=== PATIENT | male | born 1955 | race Caucasian/White ===

== ENCOUNTER 2022-06-20 09:59 | Emergency (ER) | payer OTHER ==
[~2022-06-20] VITALS: Ht 180.3 cm; Wt 83.9 kg
[2022-06-20 10:37] LABS: BASOPHILS ABSOLUTE AUTO 0.04 K/mm3 (0.00-0.23); BASOPHILS PERCENT AUTO 1 % (0-2); EOSINOPHILS ABSOLUTE AUTO 0.35 K/mm3 (0.00-0.68); EOSINOPHILS PERCENT AUTO 6 % (0-6); Hematocrit 43.3 % (37.0-53.0); Hemoglobin 15.3 g/dL (13.5-17.5); IMMATURE GRAN ABSOLUTE AUTO 0.01 K/mm3 (0.00-0.10); IMMATURE GRAN PERCENT AUTO 0 % (0-1); LYMPHOCYTES ABSOLUTE AUTO 0.89 K/mm3 (0.84-5.20); LYMPHOCYTES PERCENT AUTO 16 % (21-46); MONOCYTES ABSOLUTE AUTO 0.55 K/mm3 (0.16-1.47); MONOCYTES PERCENT AUTO 10 % (4-13); Mean Corpuscular HGB Conc 35.3 g/dL (31.5-36.5); Mean Corpuscular Volume 88 fL (80-100); Mean Platelet Volume 10.8 fL (9.1-12.4); NEUTROPHILS ABSOLUTE AUTO 3.73 K/mm3 (1.96-9.15); NEUTROPHILS PERCENT AUTO 67 % (41-73); Platelet Count 192 K/mm3 (150-400); RDW Coefficient Variation 12.3 % (11.7-14.2); Red Blood Cell Count 4.94 M/mm3 (4.30-5.90); White Blood Cell Count 5.57 K/mm3 (4.00-11.30)
[2022-06-20 11:02] LABS: Albumin, Blood 3.7 g/dL (3.4-5.0); Albumin/Globulin Ratio 1.2 (0.8-1.8); Bilirubin, Total 0.3 mg/dL (0.1-1.0); Bun/Creatinine Ratio 18.2 (12.0-20.0); Calcium, Blood 8.9 mg/dL (8.5-10.1); Creatinine, Blood 0.99 mg/dL (0.60-1.20); Total Protein, Blood 6.7 g/dL (6.4-8.2)
[2022-06-20 11:36] LABS: Source, Urine Clean Catch
[2022-06-20 11:42] LABS: Appearance, Urine Clear (Clear); Bilirubin, Urine Neg (Neg); Blood, Urine Neg (Neg); Color, Urine Yellow (P-Yellow); Glucose Qualitative, Urine Neg (Neg); Ketones, Urine Neg (Neg); Leukocyte Esterase, Urine Neg (Neg); Nitrite, Urine Neg (Neg); Protein, Urine Neg (Neg); Specific Gravity, Urine 1.005 (1.003-1.022); Urobilinogen, Urine NORM (Normal)
== END 2022-06-20 12:35 | disposition home or self-care (01) ==
LOC: ER 09:59
PROVIDERS: Emergency Medicine
DX: R10.30 Lower abdominal pain, unspecified (principal)
CPT/HCPCS: 36415; 74177; 80053; 81003; 83605; 83690; 85025; 96374-59; 99284-25; J2270; Q9967

== ENCOUNTER 2022-12-12 00:48 | Inpatient (IN) | payer OTHER, MEDICARE ==
[~2022-12-12] VITALS: Ht 180.3 cm; Wt 8.0 kg
[2022-12-12 01:45] LABS: Source, Urine Clean Catch
[2022-12-12 02:11] LABS: Magnesium, Blood 2.2 mg/dL (1.6-2.4)
[2022-12-12 02:13] LABS: BASOPHILS ABSOLUTE AUTO 0.04 K/mm3 (0.00-0.23); BASOPHILS PERCENT AUTO 1 % (0-2); EOSINOPHILS ABSOLUTE AUTO 0.37 K/mm3 (0.00-0.68); EOSINOPHILS PERCENT AUTO 6 % (0-6); Hematocrit 41.6 % (37.0-53.0); Hemoglobin 14.8 g/dL (13.5-17.5); IMMATURE GRAN ABSOLUTE AUTO 0.04 K/mm3 (0.00-0.10); IMMATURE GRAN PERCENT AUTO 1 % (0-1); LYMPHOCYTES ABSOLUTE AUTO 1.32 K/mm3 (0.84-5.20); LYMPHOCYTES PERCENT AUTO 21 % (21-46); MONOCYTES ABSOLUTE AUTO 0.66 K/mm3 (0.16-1.47); MONOCYTES PERCENT AUTO 10 % (4-13); Mean Corpuscular HGB 31.5 pg (26.0-34.0); Mean Corpuscular HGB Conc 35.6 g/dL (31.5-36.5); Mean Corpuscular Volume 89 fL (80-100); Mean Platelet Volume 10.9 fL (9.1-12.4); NEUTROPHILS ABSOLUTE AUTO 3.99 K/mm3 (1.96-9.15); NEUTROPHILS PERCENT AUTO 62 % (41-73); Platelet Count 208 K/mm3 (150-400); RDW Coefficient Variation 12.6 % (11.7-14.2); RDW Standard Deviation 41.1 fL (35.1-46.3); White Blood Cell Count 6.42 K/mm3 (4.00-11.30)
[2022-12-12 02:23] LABS: Bilirubin, Urine Neg (Neg); Blood, Urine Neg (Neg); Glucose Qualitative, Urine Neg (Neg); Ketones, Urine Neg (Neg); Leukocyte Esterase, Urine Neg (Neg); Nitrite, Urine Neg (Neg); Protein, Urine 1+ (Neg); Specific Gravity, Urine 1.025 (1.003-1.022); Urobilinogen, Urine 1+ (Normal)
[2022-12-12 02:29] LABS: Alanine Aminotransfer (ALT/SGP 26 U/L (12-78); Albumin, Blood 3.6 g/dL (3.4-5.0); Albumin/Globulin Ratio 1.1 (0.8-1.8); Alk Phos 81 U/L (50-136); Anion Gap 3 mmol/L (6-16); Aspartate Aminotrans (AST/SGOT 25 U/L (12-37); Bilirubin, Direct <0.1 mg/dL (0.0-0.3); Bilirubin, Indirect Unable to Calculate mg/dL (0.1-0.7); Bilirubin, Total 0.4 mg/dL (0.1-1.0); Blood Urea Nitrogen 18 mg/dL (8-24); Bun/Creatinine Ratio 19.5 (12.0-20.0); CO2, Blood 23 mmol/L (21-32); Calcium, Blood 9.4 mg/dL (8.5-10.1); Chloride, Blood 112 mmol/L (98-108); Creatinine, Blood 0.92 mg/dL (0.60-1.20); Globulin, Blood 3.2 g/dL (2.2-4.0); Glomerular Filtration Rate 92 (60-); Glucose, Blood 128 mg/dL (70-99); Potassium, Blood 4.1 mmol/L (3.5-5.5); Sodium, Blood 138 mmol/L (136-145); Total Protein, Blood 6.8 g/dL (6.4-8.2)
[2022-12-12 02:33] LABS: Appearance, Urine Clear (Clear); Color, Urine Yellow (P-Yellow)
[2022-12-12 06:47] VITALS: BP 140/88
[2022-12-12 15:28] VITALS: BP 133/87
--- NOTE | 2022-12-12 16:30 | NUR ---
SHIFT SUMMARY PT RESTING QUIETLY DURING SHIFT REPORT, JUST ADMITTED AT 0635 FOR POSSIBLE ILEUS VS SBO. PT NPO WITH IVF'S INFUSING PER EMAR. PROVIDER CONSULT ORDERED AND CALLED FOR DR CHILDS TO ANS.; SEE CHART. DR CHILDS HERE TO SEE PT THIS AFTERNOON. NO SX INTERVENTION NEEDED, PT SHOWING HARD STOOL IN BOWEL AND OSTOMY. DIET ORDERED AND MIRALAX STARTED PER NEW ORDERS. PT ABLE TO EAT AND DRINK AT WILL. USING URINAL AT BS. NO C/O PAIN. DENIED FURTHER NEEDS AT THIS TIME. POSSIBLE D/C TO HOME TOMORROW, PER DR CHILDS. CALL LT IN REACH.
[2022-12-12 19:43] VITALS: BP 148/84
--- NOTE | 2022-12-13 02:46 | NUR ---
SHIFT SUMMERY, PT WALKED IN HALLS FOR A WHILE THEN WENT BACK TO ROOM PT AMBULATING IN ROOM AND AT TAIMES LAYING DOWN EARLY IN SHIFT. PTSTATED STILL HAVING DISCOMFORT TO ABD . PT DRANK MIRALAX AND STATED HE HAD HAD A DOSE AT 6 PM ALSO DID NOT SEE IT CHARTED, BUT GAVE PT HIS 2100 DOSE. PT TRYING TO SLEEP AT THIS TIMECALL LIGHT IN REACH. PT WAS VERY TALKATIVE BEFORE BED TIME.
[2022-12-13 04:11] VITALS: BP 120/79
[2022-12-13 08:00] VITALS: BP 127/89
[2022-12-13] MEDS ORDERED: Acetaminophen650 M1 PO (12:22)
[2022-12-13] MEDS ORDERED: MIRALAX17 GM PO (12:23)
--- NOTE | 2022-12-13 12:53 | NUR ---
DISCHARGE NOTE MR NEELY DISCHARGED HOME FROM [facility] AT 1253HRS. HE AMBULATED OUT, STEADY GAIT. PIV REMOVED. PT VERBALISED GOOD UNDERSTANDING OF WRITTEN AND VERBAL DISCHARGE INSTRUCTIONS. PT SAID HE STILL HAS SOME ABDOMINAL DISCOMFORT, IMPROVED FROM ADMISSION. SOME LOOSE STOOL TO COLOSTOMY. PT UNDERSTANDS TO DRINK 1L OF FLUIDS A DAY AND TAKE MIRALAX WITH 16OZ WATER PER DOSE. PT EAGER TO GO HOME.
== END 2022-12-13 12:52 | disposition home or self-care (01) | DRG 392 ==
LOC: ER 00:48 → MEDS 00:49
PROVIDERS: Student in an Organized Health Care Education/Training Program; ADMIT Internal Medicine
DX: K59.00 Constipation, unspecified (principal); Z66 Do not resuscitate; E86.0 Dehydration; Z93.3 Colostomy status; Z85.048 Personal history of other malignant neoplasm of rectum, rectosigmoid junction, and anus; Z90.49 Acquired absence of other specified parts of digestive tract; Z98.890 Other specified postprocedural states
CPT/HCPCS: 36415; 74177; 80048; 80076; 83690; 83735; 85025; 96374-59; 99285-25; A9270; J1885; J2405; J7120; Q9967